=== PATIENT | male | born 1945 | race Caucasian/White ===

== ENCOUNTER → 2020-05-28 07:06 | Outpatient (CLI) | payer MEDICARE, SELFPAY ==
--- NOTE | 2020-05-28 07:13 | CT_ITS ---
STUDY: CT SOFT TISSUE NECK WITH CONTRAST REASON FOR EXAM: Male, 74 years old. NECK MASSES/LYMPHADENOPATHY, right greater than left. RADIATION DOSAGE (If Supplied By Facility): CTDIvol = ( 18.33 ) mGy, DLP = ( 545.05 ) mGycm TECHNIQUE: The patient was scanned in a multi-detector CT scanner. High resolution transaxial imaging was performed following intravenous administration of IV 100mL Isovue-300. Sagittal and coronal images were reconstructed. Individualized dose optimization techniques were used for this CT. COMPARISON: None. FINDINGS: Normal bilateral parotid glands. Normal bilateral guide spaces. Normal bilateral parapharyngeal spaces. Normal bilateral carotid spaces. Normal bilateral sublingual and submandibular glands and spaces. Normal visualized nasopharynx. Normal retropharyngeal space. Normal perivertebral space. Normal visualized bilateral faucial tonsils. The visualized tongue, tongue base and oropharynx are normal. There is evidence of a multiple rounded nodular densities scattered throughout the neck right greater than left. The largest lymph node measures 1.8 cm. They are distributed in the submental region as well as the anterior and posterior triangles of the neck. This extends into the supraclavicular regions bilaterally as well. There is no demonstrated solid or cystic mass lesion. There is no abnormal contrast enhancement. Normal epiglottis, bilateral vallecula and hypopharynx. The pre-epiglottic and paraglottic adipose spaces are normal. Normal visualized bilateral piriform sinuses, aryepiglottic folds, vocal cords, and arytenoid-cricoid articulations. Normal subglottic trachea. Normal bilateral lobes of the thyroid gland. Normal visualized pulmonary apices. Normal visualized paranasal sinuses. There is multilevel degenerative changes of the cervical spine. CT/Soft Tissue Neck WITH Contrast IMPRESSION: Diffuse bilateral cervical lymphadenopathy more prominent on the right side. Electronically Signed: Shyam Sanchez MD at 8:21 EDT , Service support ,
[2020-05-28 07:35] LABS: CREATININE FINGERSTICK 1.6 mg/dL (0.70-1.30)
--- NOTE | 2020-05-28 10:00 | ASPOS_PTH ---
PATIENT: SHERMAN JOHNSON LOC: [place] U#:[id number] AGE/SX: 79/M ROOM: RE05/28/[address]: Dr. Dev Madison MD : 1945 BED: DIS: SPEC #: [id number] RECD: 05/28/20 12:21 STATUS: MARKIE QUINTANA #: [id number] IGNACIO: 05/28/20 10:[address]: Dev Madison DEPT: CYTOLOGY RECD BY: Ninfa Nunez ENTERED: 05/28/20 12:21 SP TYPE: ASP HERE OTHR DR: Dr. Preet Tariq MD Tissues: Neck, NOS Procedures: Surgery Specimen Level IV Cytology Other Fine Needle Asp on Site HEADER OPERATION: Right neck fine needle aspiration PRE-OP DIAGNOSIS: Right neck mass TISSUE SUBMITTED: Right neck FNA DIAGNOSIS CYTOLOGY Fine needle aspiration, right neck mass (smears and cell block): B-cell lymphoma consistent with CLL/SLL. See comment. AM:lyssa 06/01/2020 COMMENT The specimen is evaluated at the time of FNA by Dr. Carbajal. Immediate Evaluation = Polymorphous lymphocytes present. Immunohistochemistry ([id number]) supports the above diagnosis. FLOW analysis performed on aspirate material reveals a B-cell population that is CD5 and CD23 positive compatible with B-CLL/SLL (complete report viewable in EMR). Case has been reviewed in consultation with Dr. Hess who concurs with the above diagnosis. IDC:SJ CYTOLOGY STUDY Slides are reviewed. CYTOLOGY GROSS Received is 0.2 ml of reddish fluid labeled with the patient's name, and designated right neck. Three imprints and three paps are made from the submitted fluid and the rest is added to CytoLyt for cell block preparation. Submitted for cytology study. / AM:lyssa 05/28/2020 TC:0 CPT: 90145,[id number],42102.
--- NOTE | 2020-05-29 | IMM_PTH ---
PATIENT: SHERMAN JOHNSON LOC: CT U#:[id number] AGE/SX: 79/M ROOM: RE05/28/[address]: Dr. Dev Madison MD : 1945 BED: DIS: SPEC #: [id number] RECD: 05/29/20 15:36 STATUS: MARKIE REQ #: [id number] IGNACIO: 05/29/20 00:[address]: Dev Madison DEPT: IMMUNOHISTOCHEMISTRY RECD BY: Alysa Ramos ENTERED: 05/29/20 15:38 SP TYPE: IMMUNO OTHR DR: Dr. Preet Tariq MD Tissues: Neck, NOS Procedures: BCL-2 (add) BCL-6 (add) CD10 (add) CD138 (add) CD15 (add) CD20 (add) CD23 (add) CD3 (add) CD30 (add) CD43 (add) CD45 (add) CD5 (add) CD79A (add) CYCLIN (add) KAPPA (add) KI-67 (add) LAMBDA (add) MPO (add) MUM1 (add) C-MYC (add) Pankeratin (initial) PHYSICIAN & INSTITUTION [place] [phone] SPECIMEN INFORMATION: Tissue Source: Right neck FNA Clinical Info: Right neck mass Specimen Number: [id number] CPT code: 96760, 78087 x20 METHODOLOGY: Deparaffinized sections of prefer/formalin-fixed tissue or PAP/DQ stained slides are incubated with monoclonal/polyclonal antibodies/oligonucleotide probes. Localization is made via biotin free immunoperoxidase method. Appropriate controls are performed and reacted as expected. Results on target cell population are indicated in the following table: RESULTS: ANTIBODY / CLONE RESULT AE1-3 (AE1/AE3/PCK26) negative CD3 (PS1) negative CD5 (SP10) positive CD10 (56C6) negative CD15 (MMA) negative CD20 (L26) negative CD23 (1B12) positive CD30 (Kevin-H2) negative CD43 (L60) positive CD45 (RP2/18) positive CD79a (11E3) positive CD138 (B-A38) negative BCL-2 (bcl-2/100/D5) positive BCL-6 (RI258R/A8) negative [place] D1/BCL-1 (SP4) negative MUM1 (MRQ-43) negative C-MYC (Y69) negative [place] (polyclonal) positive Lambda (polyclonal) negative MPO (polyclonal) negative Ki-67 (30-9) positive, low These tests were developed and their performance characteristics determined by [facility]. They may not have been cleared or approved by the U.[place]. Food and Drug Administration. The FDA has determined that such clearance or approval is not necessary. The above immunohistochemical/dualISH markers are ordered and reviewed by the Pathologist. INTERPRETATION: Right neck, fine needle aspiration: Consistent with B-cell CLL/SLL. AM:lyssa 06/02/2020
== END ==
PROVIDERS: PCP Family Medicine; Visit Provider Otolaryngology
DX: R22.1 Localized swelling, mass and lump, neck (principal)
CPT/HCPCS: 10021; 70491; 88161; 88305; 88341; 88342; Q9967

== ENCOUNTER 2021-05-14 10:49 | Outpatient (CLI) | payer MEDICARE, SELFPAY ==
--- NOTE | 2021-05-14 10:53 | VDLE_ITS ---
Reason For Study: CLL, RLE SWELLING RIGHT LEFT GSV is normal. CFV is compressible, spontaneous, phasic, CFV is compressible, spontaneous, phasic, competent, and demonstrates normal competent and demonstrates normal augmentation. augmentation. FV is compressible, spontaneous, phasic, competent and demonstrates normal augmentation. POP V is compressible, spontaneous, phasic, competent and demonstrates normal augmentation. T/P Trunk is compressible. PTV is compressible. RT PerV is compressible. Procedure This is a venous duplex using B-mode, color flow and spectral Doppler. Exam performed in department. A preliminary report was called and/or faxed to Dr. Kendrick @ 11:15 am @ [phone]. VL/Venous Duplex US, Unilateral Interpretation Summary There is no evidence of right lower extremity deep vein thrombosis. Right great saphenous vein appears patent and compressible segmentally. Normal flow patterns left common f emoral vein Ordering Physician: Bijan Kendrick Referring Physician: Preet Tariq Performed By: Laura Davies, RDCS, RVT
== END 2021-05-14 23:59 | disposition home or self-care (01) ==
LOC: CVS 10:51
PROVIDERS: PCP Family Medicine; Referring Provider Internal Medicine Hematology & Oncology; Visit Provider Internal Medicine Hematology & Oncology
DX: M79.89 Other specified soft tissue disorders (principal); C91.10 Chronic lymphocytic leukemia of B-cell type not having achieved remission
CPT/HCPCS: 93971